=== PATIENT | male | born 1985 | race Hispanic/Latino ===

== ENCOUNTER 2017-08-01 21:24 | Emergency (ER) | payer OTHER, SELFPAY ==
[2017-08-01] MEDS ORDERED: Oxymetazoline HCl 0.05% ( 15 ML ) ONE (23:51)
[2017-08-01] MEDS ORDERED: Lidocaine Viscous Sol 2% 15 ml UD Cup ONE (23:51)
== END 2017-08-02 | disposition home or self-care (01) ==
LOC: MADERS 21:24
DX: R04.0 Epistaxis (principal); F32.9 Major depressive disorder, single episode, unspecified; F41.9 Anxiety disorder, unspecified; Z79.899 Other long term (current) drug therapy
CPT/HCPCS: 99283

== ENCOUNTER 2020-04-15 18:47 | Emergency (ER) | payer OTHER | END 2020-04-15 19:30 | disposition left against medical advice (07) | LOC: MADERS 18:47 | DX: Z53.21 Procedure and treatment not carried out due to patient leaving prior to being seen by health care provider (principal) ==